=== PATIENT | male | born 1965 | race Caucasian/White ===

== ENCOUNTER 2016-04-25 09:24 | Emergency (ER) | payer OTHER ==
[~2016-04-25] VITALS: Ht 180.3 cm; Wt 120.0 kg
[2016-04-25 09:50] VITALS: BP 153/92; PULSE 64; RESP 16; TEMP 98.2; O2SAT 98
[2016-04-25] MEDS ORDERED: TETANUS/DIPHTHERIA TOXOID ADULT 0.5 ML VIAL IM ONE (10:15)
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
[2016-04-25] MEDS ORDERED: CEPH-460 PO (11:06)
[2016-04-25] MEDS ORDERED: IBUP800T23 PO (11:06)
[2016-04-27] MEDS ORDERED: LIPI20TA PO (13:06)
== END 2016-04-25 12:16 | disposition home or self-care (01) ==
LOC: NEPB 09:24
DX: S62.616A Displaced fracture of proximal phalanx of right little finger, initial encounter for closed fracture (principal); S60.416A Abrasion of right little finger, initial encounter; F10.10 Alcohol abuse, uncomplicated; Z23 Encounter for immunization; W22.8XXA Striking against or struck by other objects, initial encounter; Y93.55 Activity, bike riding; Y92.9 Unspecified place or not applicable; Y99.9 Unspecified external cause status
CPT/HCPCS: 73130; 90471; 90714

== ENCOUNTER → 2016-05-02 | Day surgery (SDC) | payer OTHER ==
[~2016-05-02] VITALS: Ht 180.3 cm; Wt 113.4 kg
[~2016-05-02] MED LIST: BUPIVACAINE HCL PF 0.5% 30 ML VIAL ONE; CEPH-460 PO; DEXT 5%-NACL 0.45% 1000 ML INJ 1,000 ML IV SCH; IBUP800T23 PO; LACTATED RINGER'S 1000 ML INJ 1,000 ML ONE; LIPI20TA PO; MIDAZOLAM HCL 2 MG/2 ML VIAL ONE; ONDANSETRON HCL 4 MG/2 ML VIAL IV PUSH ONE; POVIDONE IODINE 10% OINT 1 PACKET TOP ONE; PROPOFOL 200 MG/20 ML AMP IV ONE; SODIUM CHLORIDE 0.9% FLUSH 5 ML FLUSH IVF PRN; SODIUM CHLORIDE 0.9% FLUSH 5 ML FLUSH IVF SCH; ceFAZolin 2 GM PREMIX 50 ML ONE
[2016-05-02 07:05] VITALS: BP 139/92; PULSE 68; RESP 16; TEMP 98.4; O2SAT 98
[2016-05-02 07:09] LABS: HEMATOCRIT 41.5 % (39.0-51.0); MEAN CELL VOLUME 88.1 FL (80.0-100.0); MEAN CORPUSCULAR HGB CONC 35.1 % (32.0-36.0); PLATELET COUNT 207 TH/MM3 (150-450); RED BLOOD COUNT 4.71 MIL/MM3 (4.50-5.90); REVIEW FLAG FINAL; WHITE BLOOD COUNT 5.9 TH/MM3 (4.0-11.0)
--- NOTE | 2016-05-02 09:31 | HHI.PR ---
Immediate Post Op Note Procedure Date: May 02, 2016 Pre Op Diagnosis: (1) Closed displaced fracture of proximal phalanx of right little finger Post Op Diagnosis: (1) Closed displaced fracture of proximal phalanx of right little finger Surgeon: Geraldine Andrade Professional Model(s): None Procedure: Closed reduction of the right fifth proximal phalanx with percutaneous fixation. Anesthesia: General Drains: None Tourniquet time (min at mmHg) NA Patient to: PACU Patient Condition: Good Implant/Devices: SEE IMPLANT LOG (if applicable) Date/Time of Procedure: SEE SURGICAL CARE RECORD Geraldine Andrade MD May 02, 2016 09:30
--- NOTE | 2016-05-02 10:15 | MP ---
cc: ANG ENGLISH M.D. DATE OF SURGERY: 05/02/2016 PREOPERATIVE DIAGNOSIS Closed displaced fracture proximal phalanx of the right fifth finger. POSTOPERATIVE DIAGNOSIS Closed displaced fracture proximal phalanx of the right fifth finger. PROCEDURE 1. Closed reduction of the right fifth proximal phalanx with percutaneous fixation. 2. Use of the mini C-arm. ANESTHESIA General. SURGEON Dr. English INDICATIONS A 50-year-old male with a comminuted fracture with displacement and instability at the base of the right fifth proximal phalanx. FINDINGS At the completion of the procedure the fracture appeared to be reduced anatomically and held in place with two crossed K-wires. OPERATIVE TIME 45 minutes. DETAILS OF PROCEDURE The patient was seen preoperatively where the site and side were identified and marked. The patient was then taken to the operating room, placed in a supine position. His identity was checked against the arm band and the consent form, site and side confirmed. A timeout was called prior to beginning the procedure. The right upper extremity was prepped with Hibiclens and draped in the usual sterile fashion. The mini C-arm was brought into play into the field and the fracture was documented and reexamined. It was then reduced manually. An 0.045 K-wire was placed across the fracture with the position being confirmed with the mini C-arm. Once the first pin was in place and there was adequate reduction, a second pin was placed. These were crossed with K-wires. The first one came from the radial side of the base of the proximal phalanx and the second one came from the ulnar side. Once there was excellent stability noted and excellent placement of the pins. They were cut short and the ends were covered with Jurgan balls. Bupivacaine 0.5% plain was then injected palmarly as a digital block and then dorsally to block the dorsal nerves. The area was then cleansed of blood and dressed with povidone-iodine ointment, Adaptic, Telfa, 4x4s, hand wrap and palmar and dorsal splints. The patient was then taken from the operating room to the recovery room in satisfactory condition having tolerated the procedure well. Postoperative instructions include keeping the arm elevated, keeping it clean and dry and returning in several days for follow-up. The patient will be taking 800 mg of ibuprofen for pain. MD JAVAD Cuadra/JOHN /9:31 AM /10:00 AM
[2016-05-02 10:30] VITALS: BP 129/87; PULSE 65; RESP 16; TEMP 98.2; O2SAT 99
--- NOTE | 2016-05-02 14:17 | EKG ---
Date Performed: 05/02/2016 Time Performed: 07:12:00 PTAGE: 50 years EKG: SINUS BRADYCARDIA BORDERLINE ECG NO PREVIOUS TRACING DOCTOR: Shoaib Johansen Interpretating Date/Time 05/02/2016 14:13:41
== END | disposition home or self-care (01) ==
LOC: CSDC 06:07
PROVIDERS: ATTEND Specialist
DX: S62.616A Displaced fracture of proximal phalanx of right little finger, initial encounter for closed fracture (principal); R94.31 Abnormal electrocardiogram [ECG] [EKG]; W22.8XXA Striking against or struck by other objects, initial encounter; Y93.55 Activity, bike riding
CPT/HCPCS: 01820; 26727; 36415; 76000; 85027; 93005; J0690; J2250; J2405; J7120